=== PATIENT | male | born 1935 | race Caucasian/White ===

== ENCOUNTER → 2020-01-17 | Outpatient (REF) | payer MEDICARE, OTHER ==
[2020-02-25 09:28] LABS: ANTI JO-1 ANTIBODIES SEE SEPARATE REPORT; ANTI SCLERODERMA ANTIBODIES SEE SEPARATE REPORT; ANTINUCLEAR ANTIBODIES DIRECT See Separate Report; ASPERGILLUS FUMIGATUS AB SEE SEPARATE REPORT; CYCLIC CITRULLINATED PEPTIDE See Separate Report UNITS; CYTOPLASMIC NEUTROP AB ANCA-C SEE SEPARATE REPORT; SSA SJOGRENS A SEE SEPARATE REPORT; SSB SJOGRENS B SEE SEPARATE REPORT
[2020-02-25 09:29] LABS: ANGIOTENSIN 1 CONVERTING ENZYM See Separate Report U/L
[2020-03-02 11:15] LABS: C REACTIVE PROTEIN QUANTITATIV < 0.30 MG/DL (0.00-0.30); RHEUMATOID FACTOR QUANT < 10.0 IU/ML (<15.0)
== END ==
LOC: M PLALAB 11:19
PROVIDERS: ATTEND Internal Medicine Pulmonary Disease
DX: J84.10 Pulmonary fibrosis, unspecified (principal)

== ENCOUNTER → 2020-01-25 | Outpatient (CLI) | payer MEDICARE, OTHER | LOC: M RAD 09:09 | PROVIDERS: ATTEND Internal Medicine Pulmonary Disease | DX: J84.10 Pulmonary fibrosis, unspecified (principal) ==

== ENCOUNTER → 2020-03-28 | Outpatient (CLI) | payer MEDICARE, OTHER ==
[2020-03-28 14:46] LABS: INR 1.04; PROTHROMBIN TIME 13.9 SECONDS (12.5-14.3)
[2020-03-28 14:47] LABS: PARTIAL THROMBOPLASTIN TIME 31.8 SECONDS (24.2-38.5)
[2020-03-28 15:07] LABS: ALBUMIN 3.5 GM/DL (3.2-5.2); ALT/SGPT 16 U/L (12-78); BILIRUBIN,TOTAL 0.7 MG/DL (0.2-1.0); BLOOD UREA NITROGEN 17 MG/DL (7-18); CALCIUM LEVEL 9.1 MG/DL (8.8-10.2); CARBON DIOXIDE LEVEL 32 MEQ/L (21-32); CHLORIDE LEVEL 101 MEQ/L (98-107); CREATININE FOR GFR 0.89 MG/DL (0.70-1.30); GLOMERULAR FILTRATION RATE > 60.0 (>35); GLUCOSE, FASTING 58 MG/DL (70-100); POTASSIUM SERUM 4.8 MEQ/L (3.5-5.1); SODIUM LEVEL 137 MEQ/L (136-145); TOTAL PROTEIN 7.4 GM/DL (6.4-8.2)
== END ==
LOC: M PLALAB 09:11
PROVIDERS: ATTEND Internal Medicine Pulmonary Disease
DX: J84.112 Idiopathic pulmonary fibrosis (principal)

== ENCOUNTER → 2020-04-22 | Outpatient (REF) | payer MEDICARE, OTHER ==
[2020-04-22 18:25] LABS: ALBUMIN 3.6 GM/DL (3.2-5.2); ALT/SGPT 16 U/L (12-78); BILIRUBIN,TOTAL 0.6 MG/DL (0.2-1.0); BLOOD UREA NITROGEN 23 MG/DL (7-18); CALCIUM LEVEL 9.2 MG/DL (8.8-10.2); CARBON DIOXIDE LEVEL 30 MEQ/L (21-32); CHLORIDE LEVEL 103 MEQ/L (98-107); CREATININE FOR GFR 0.79 MG/DL (0.70-1.30); GLOMERULAR FILTRATION RATE > 60.0 (>35); GLUCOSE, FASTING 111 MG/DL (70-100); POTASSIUM SERUM 5.7 MEQ/L (3.5-5.1); SODIUM LEVEL 137 MEQ/L (136-145); TOTAL PROTEIN 7.2 GM/DL (6.4-8.2)
== END ==
LOC: M LAB REF 17:00
PROVIDERS: ATTEND Internal Medicine Pulmonary Disease
DX: J84.10 Pulmonary fibrosis, unspecified (principal)

== ENCOUNTER → 2020-05-19 | Outpatient (CLI) | payer MEDICARE, OTHER ==
[2020-05-19 14:21] LABS: ALBUMIN 3.5 GM/DL (3.2-5.2); ALT/SGPT 18 U/L (12-78); BILIRUBIN,TOTAL 0.4 MG/DL (0.2-1.0); BLOOD UREA NITROGEN 16 MG/DL (7-18); CALCIUM LEVEL 8.9 MG/DL (8.8-10.2); CARBON DIOXIDE LEVEL 31 MEQ/L (21-32); CHLORIDE LEVEL 100 MEQ/L (98-107); CREATININE FOR GFR 0.78 MG/DL (0.70-1.30); GLOMERULAR FILTRATION RATE > 60.0 (>35); GLUCOSE, FASTING 78 MG/DL (70-100); POTASSIUM SERUM 4.4 MEQ/L (3.5-5.1); SODIUM LEVEL 134 MEQ/L (136-145); TOTAL PROTEIN 7.5 GM/DL (6.4-8.2)
== END ==
LOC: M PLALAB 12:14
PROVIDERS: ATTEND Internal Medicine Pulmonary Disease
DX: R94.2 Abnormal results of pulmonary function studies (principal); J84.10 Pulmonary fibrosis, unspecified

== ENCOUNTER → 2020-07-14 | Outpatient (CLI) | payer MEDICARE, OTHER ==
[2020-07-14 14:20] LABS: ALBUMIN 3.5 GM/DL (3.2-5.2); ALT/SGPT 14 U/L (12-78); BILIRUBIN,TOTAL 0.4 MG/DL (0.2-1.0); BLOOD UREA NITROGEN 20 MG/DL (7-18); CALCIUM LEVEL 9.3 MG/DL (8.8-10.2); CARBON DIOXIDE LEVEL 33 MEQ/L (21-32); CHLORIDE LEVEL 101 MEQ/L (98-107); GLOMERULAR FILTRATION RATE > 60.0 (>35); GLUCOSE, FASTING 72 MG/DL (70-100); POTASSIUM SERUM 4.8 MEQ/L (3.5-5.1); SODIUM LEVEL 137 MEQ/L (136-145); TOTAL PROTEIN 7.5 GM/DL (6.4-8.2)
== END ==
LOC: M PLALAB 09:47
PROVIDERS: ATTEND Internal Medicine Pulmonary Disease
DX: J84.10 Pulmonary fibrosis, unspecified (principal)

== ENCOUNTER → 2020-08-12 | Outpatient (CLI) | payer MEDICARE, OTHER ==
[2020-08-12 14:18] LABS: BASO % 0.4 % (0.0-1.0); EOS # 0.3 10^3/uL (0.0-0.5); EOS % 3.3 % (0.0-3.0); HEMATOCRIT 40.1 % (42.0-52.0); HEMOGLOBIN 12.5 g/dl (13.5-17.5); LYMPH # 1.4 10^3/uL (1.5-5.0); LYMPH % 17.6 % (24.0-44.0); MEAN CORPUSCULAR HEMOGLOBIN 29.1 pg (27.0-33.0); MEAN CORPUSCULAR HGB CONC 31.2 g/dl (32.0-36.5); MEAN CORPUSCULAR VOLUME 93.5 fl (80.0-96.0); MONO # 0.5 10^3/uL (0.0-0.8); NEUTROPHILS # 5.5 10^3/uL (1.5-8.5); NEUTROPHILS % 71.4 % (36.0-66.0); PLATELET COUNT, AUTOMATED 328 10^3/uL (150-450); RED BLOOD COUNT 4.29 10^6/uL (4.30-6.10); WHITE BLOOD COUNT 7.7 10^3/uL (4.0-10.0)
[2020-08-12 14:27] LABS: INR 1.05; PROTHROMBIN TIME 13.9 SECONDS (12.5-14.3)
[2020-08-12 14:28] LABS: PARTIAL THROMBOPLASTIN TIME 31.6 SECONDS (24.2-38.5)
[2020-08-12 14:50] LABS: ALBUMIN 3.7 GM/DL (3.2-5.2); ALT/SGPT 16 U/L (12-78); BILIRUBIN,TOTAL 0.6 MG/DL (0.2-1.0); BLOOD UREA NITROGEN 19 MG/DL (7-18); CALCIUM LEVEL 9.4 MG/DL (8.8-10.2); CARBON DIOXIDE LEVEL 33 MEQ/L (21-32); CHLORIDE LEVEL 100 MEQ/L (98-107); CREATININE FOR GFR 0.96 MG/DL (0.70-1.30); GLOMERULAR FILTRATION RATE > 60.0 (>35); GLUCOSE, FASTING 104 MG/DL (70-100); SODIUM LEVEL 136 MEQ/L (136-145); TOTAL PROTEIN 7.6 GM/DL (6.4-8.2)
== END ==
LOC: M PLALAB 11:55
PROVIDERS: ATTEND Internal Medicine Pulmonary Disease
DX: J84.10 Pulmonary fibrosis, unspecified (principal)

== ENCOUNTER → 2020-12-05 | Outpatient (REF) | payer MEDICARE, OTHER ==
[2020-12-05 17:21] LABS: FERRITIN 198 NG/ML (26-388); IRON (FE) 71 UG/DL (65-175); PERCENT SATURATION 28.7 % (19.7-50.0); TOTAL IRON BINDING CAPACITY 247 UG/DL (250-450)
[2020-12-05 17:27] LABS: FOLATE > 24.0 NG/ML; VITAMIN B12 LEVEL 918 PG/ML
== END ==
LOC: M LAB REF 16:27
PROVIDERS: ATTEND Internal Medicine
DX: K59.00 Constipation, unspecified (principal)

== ENCOUNTER 2021-01-27 22:26 | Inpatient (IN) | payer MEDICARE, OTHER ==
[~2021-01-27] VITALS: Ht 172.7 cm; Wt 57.7 kg
[2021-01-27] MEDS ORDERED: ACETAMINOPHEN TAB 650MG DOSE (2X325MG) PO ONE (23:10)
[2021-01-28 00:08] LABS: BASO # 0.1 10^3/uL (0.0-0.2); BASO % 0.4 % (0.0-1.0); EOS # 0.4 10^3/uL (0.0-0.5); EOS % 2.2 % (0.0-3.0); HEMATOCRIT 42.5 % (42.0-52.0); HEMOGLOBIN 13.8 g/dl (13.5-17.5); LYMPH % 6.4 % (24.0-44.0); MEAN CORPUSCULAR HEMOGLOBIN 28.8 pg (27.0-33.0); MEAN CORPUSCULAR HGB CONC 32.5 g/dl (32.0-36.5); MEAN CORPUSCULAR VOLUME 88.7 fl (80.0-96.0); MONO # 0.7 10^3/uL (0.0-0.8); MONO % 4.4 % (2.0-8.0); NEUTROPHILS # 13.6 10^3/uL (1.5-8.5); NEUTROPHILS % 85.8 % (36.0-66.0); PLATELET COUNT, AUTOMATED 373 10^3/uL (150-450); RED BLOOD COUNT 4.79 10^6/uL (4.30-6.10); WHITE BLOOD COUNT 15.8 10^3/uL (4.0-10.0)
--- NOTE | 2021-01-28 00:31 | REPVR ---
PROCEDURE INFORMATION: Exam: XR Chest Exam date and time: 01/27/2021 11:55 PM Age: 85 years old Clinical indication: Cough and dyspnea TECHNIQUE: Imaging protocol: XR of the chest. Views: 1 view. COMPARISON: CT Chest without contrast 01/25/2020 9:38 AM (The report from this study was not available for review at the time of this interpretation.) FINDINGS: Lungs: There are chronic extensive reticular opacities in both lungs, which can also be seen in the CT chest on 01/25/2020 and compatible with interstitial lung disease. There are areas of superimposed consolidation in both lungs. Pleural spaces: Unremarkable. No pleural effusion. No pneumothorax. Heart/Mediastinum: Unremarkable. No cardiomegaly. Bones/joints: Unremarkable. IMPRESSION: Areas of consolidation in both lungs superimposed on chronic interstitial lung disease, which may represent pneumonia. Electronically signed by: Jimmy Prince On 01/28/2021 00:31:05 AM
[2021-01-28] MEDS ORDERED: cefTRIAXone SOD 2 GM in D5W MINI-BAG PLUS 50 ML IV ONE (01:00)
[2021-01-28 01:51] LABS: ALBUMIN 2.7 GM/DL (3.2-5.2); ALT/SGPT 13 U/L (12-78); BILIRUBIN,DIRECT 0.2 MG/DL (0.0-0.2); BILIRUBIN,TOTAL 0.5 MG/DL (0.2-1.0); BLOOD UREA NITROGEN 24 MG/DL (7-18); CARBON DIOXIDE LEVEL 30 MEQ/L (21-32); CHLORIDE LEVEL 103 MEQ/L (98-107); CK-MB VALUE MASS 1.7 NG/ML (<3.6); CPK CREATINE PHOSPHOKINASE 37 U/L (39-308); CREATININE FOR GFR 0.65 MG/DL (0.70-1.30); GLOMERULAR FILTRATION RATE > 60.0 (>35); GLUCOSE, FASTING 110 MG/DL (70-100); MB/CK RELATIVE INDEX 4.59 (< OR =4); NT-PRO BNP 5996 PG/ML (<450); POTASSIUM SERUM 4.2 MEQ/L (3.5-5.1); SODIUM LEVEL 137 MEQ/L (136-145); TOTAL PROTEIN 7.1 GM/DL (6.4-8.2); TROPONIN I 0.05 NG/ML (< 0.10)
[2021-01-28] MEDS ORDERED: ASPI-1 PO (01:58)
[2021-01-28] MEDS ORDERED: ISOS1TAB36 PO (01:58)
[2021-01-28] MEDS ORDERED: ATOR1TAB19 PO (01:58)
[2021-01-28] MEDS ORDERED: ALBU8.5H PO (01:58)
[2021-01-28] MEDS ORDERED: PANT40TA29 PO (01:58)
[2021-01-28] MEDS ORDERED: MORP1SOL5 PO (01:58)
[2021-01-28] MEDS ORDERED: MONT10TA10 PO (01:58)
[2021-01-28] MEDS ORDERED: NITR0.4S14 SL (01:58)
[2021-01-28] MEDS ORDERED: VITA-243 PO (01:58)
[2021-01-28] MEDS ORDERED: IBUP-1114 PO (01:58)
[2021-01-28] MEDS ORDERED: LEVO112T2 PO (01:58)
[2021-01-28] MEDS ORDERED: MIRA3350 PO (01:59)
[2021-01-28] MEDS ORDERED: CO Q200C10 PO ×2 (01:59→06:37)
[2021-01-28] MEDS ORDERED: Glucosamine PO (02:04)
[2021-01-28] MEDS ORDERED: Prevagen PO (02:05)
[2021-01-28] MEDS ORDERED: ISOVUE-370 76% 100ML VIAL As Ordered ONE (02:17)
--- NOTE | 2021-01-28 03:24 | REPVR ---
PROCEDURE INFORMATION: Exam: CTA Chest With Contrast Exam date and time: 01/28/2021 2:13 AM Age: 85 years old Clinical indication: Shortness of breath; Patient HX: Known fibrosis; Additional info: Shortness of breath, hypoxia, R/O pe TECHNIQUE: Imaging protocol: Computed tomographic angiography of the chest with contrast. 3D rendering (Not supervised by radiologist): MIP and/or 3D reconstructed images were created by the technologist. Radiation optimization: All CT scans at this facility use at least one of these dose optimization techniques: automated exposure control; mA and/or kV adjustment per patient size (includes targeted exams where dose is matched to clinical indication); or iterative reconstruction. Contrast material: ISO; Contrast volume: 75 ml; Contrast route: INTRAVENOUS (IV); COMPARISON: CT Chest without contrast 01/25/2020 9:38 AM FINDINGS: Pulmonary arteries: No pulmonary embolism. Aorta: The thoracic aorta is intact and patent. There is no thoracic aortic aneurysm, pseudoaneurysm, penetrating atherosclerotic ulcer, intramural hematoma, or dissection. There are mild atherosclerotic calcifications. Thyroid: The thyroid is small and the right lobe contains a calcification, which are unchanged findings compared to the prior CT chest on 01/25/2020. Trachea: Normal. Bronchial tree: Patent. Lungs: There is interlobular septal thickening, traction bronchiectasis, honeycombing, and areas of superimposed peripheral consolidation in both lungs, with progression in the consolidation in both lower lobes compared to the CT chest on 01/25/2020. There are calcified granulomas in the right upper lobe and left lower lobe. Pleural spaces: No pneumothorax. No pleural effusion. Heart: No cardiomegaly or pericardial effusion. The ratio of the diameter of the right ventricle to the diameter of the left ventricle measures less than 1, which is within normal limits and there is no CT evidence for a right ventricular strain. There are coronary artery calcifications. Mediastinal space: There is a small to moderate hiatal hernia, which is similar in appearance compared to the CT chest on 01/25/2020. Lymph nodes: There is pretracheal, prevascular, aortopulmonary window, and subcarinal lymphadenopathy. Calcified subcarinal lymph nodes are present, which represent calcified granulomas. Liver: There are calcified granulomas in the liver. No liver mass is identified. The contour of the liver is smooth. No hepatomegaly. The liver was not fully imaged. Spleen: There are calcified granulomas in the spleen. The spleen was not fully imaged. Limited bowel: There is colonic diverticulosis at the splenic flexure of the colon. The bowel was not fully imaged. Bones/joints: There is no fracture or dislocation. No suspicious osteolytic or osteoblastic lesion. Soft tissues: Unremarkable. No soft tissue fluid collection. IMPRESSION: 1. No pulmonary embolism. 2. Chronic fibrotic changes in the lungs, with progressive consolidation in both lower lobes compared to the CT chest on 01/25/2020, which may represent a superimposed pneumonia or progressive fibrosis. 3. Pretracheal, prevascular, aortopulmonary window, and subcarinal lymphadenopathy. 4. Small to moderate hiatal hernia, which is similar in appearance compared to the CT chest on 01/25/2020. Electronically signed by: Jimmy Prince On 01/28/2021 03:23:29 AM
[2021-01-28] MEDS ORDERED: C 50TAB PO (06:37)
[2021-01-28] MEDS ORDERED: ASPI-264 PO (06:37)
[2021-01-28] MEDS ORDERED: D31000TA2 PO (06:37)
[2021-01-28] MEDS ORDERED: VITMTA PO (06:37)
[2021-01-28] MEDS ORDERED: ALLE24TA7 PO (06:37)
[2021-01-28] MEDS ORDERED: MIRA1POW3 PO (06:37)
[2021-01-28] MEDS ORDERED: HOME MED LIST COMPLETE! XX SCH (06:40)
[2021-01-28] MEDS ORDERED: ACETAMINOPHEN TAB 650MG DOSE (2X325MG) PO PRN (07:45)
[2021-01-28] MEDS ORDERED: NITROGLYCERIN 0.4 MG SUBL TABLET SL PRN (07:45)
[2021-01-28] MEDS ORDERED: MORPHINE 10MG/0.5ML ORAL CONCENTRATE SOLUTION U/D PO PRN (07:45)
[2021-01-28] MEDS ORDERED: AZITHROMYCIN INJ 500 MG, VIAL MATE ADAPTER 1 EACH in NS 250 ML IV ONE (10:00)
--- NOTE | 2021-01-28 10:08 | ECGEPIP ---
[facility] - ED Test Date: 2021-01-27 Pat Name: MILTON MORALES Department: Room: - Gender: Male Supervisor [employer]: [facility] : 1935 Requested By: MEENU Ramos Order Number: [id number] Reading MD: Brandee Hernandez Measurements Intervals [place] Rate: 104 P: 85 DE: 180 QRS: -27 QRSD: 142 T: 137 QT: 372 QTc: 489 Interpretive Statements Sinus tachycardia with occasional premature ventricular complexes Left bundle branch block No prior Electronically Signed on 01-28-2021 10:07:54 EDT by Brandee Hernandez
[2021-01-28 10:55] VITALS: BP 144/88
[2021-01-28] MEDS: ISOSORBIDE MON. (IMDUR) 60 MG XR TAB PO SCH (11:59)
[2021-01-28] MEDS: ASCORBIC ACID 500 MG TAB PO SCH ×2 (11:59→22:02)
[2021-01-28] MEDS: PANTOPRAZOLE 40MG TAB (PROTONIX) PO SCH (11:59)
[2021-01-28] MEDS: VITAMIN D 1,000 INTERNATIONAL UNITS TABLET PO SCH ×2 (11:59→22:02)
[2021-01-28] MEDS: ENOXAPARIN 40MG/0.4ML SYRINGE (J1650 PER 10MG) SC SCH (12:00)
--- NOTE | 2021-01-28 12:04 | HPEPDOC ---
[facility] Medical History & Physical Date of Admission Jan 28, 2021 Date of Service: Jan 28, 2021 Primary Care Physician: Jr Pedraza Collins Attending Physician: NORM DELGADILLO DO History and Physical CHIEF COMPLAINT: Shortness of breath HISTORY OF PRESENT ILLNESS: Patient is an 85-year-old male who presented to the emergency department with a 3-week worsening course of shortness of breath. Patient states that he has been having increased shortness of breath. Patient was diagnosed about a year ago with pulmonary fibrosis and has been seeing pulmonary. Patient states he has qualified for home oxygen at night but not during the day however, he has not yet received the home oxygen set up. Patient states that he has been having difficulty walking around and going up flight of stairs. Patient states that he was able to do this without much difficulty prior to the last 3 weeks. Patient does state he is coughing occasionally and gets a coughing fit so bad that he begins gagging. When he does get he has a frothy nonbloody sputum. Patient denies having any fevers or chills. Patient states he came into the emergency department today as he was having worsening of the shortness of breath to the point where he had a be standing in front of an air conditioner for about 30 minutes to recover and he checked his oxygen saturation and was in the low 80s. In the emergency department, a CT scan was performed and showed either pneumonia or worsening of his chronic fibrosis. Patient was placed on nasal cannula oxygen and is feeling much better at this time. PAST MEDICAL HISTORY: 1. Pulmonary fibrosis. 2. Angina. 3. Hypertension. 4. Hypothyroidism 5. Hyperlipidemia PAST SURGICAL HISTORY: 1. 2 hernia surgeries in the past. SOCIAL HISTORY: Patient currently lives at home alone and quit smoking in the 1970s. Patient will occasionally drink alcohol and denies any illicit drug use. Patient used to work maintenance at a school and does have some possible chemical exposure. Patient denies having any pets FAMILY HISTORY: Patient states his entire family had hypertension ALLERGIES: Please see below. REVIEW OF SYSTEMS: General: Patient denies fevers HEENT: Patient denies headaches Cardiovascular: Patient denies chest pain Respiratory: Patient reports shortness of breath and cough as above. GI: Patient reports that he did have one episode of vomiting a few days ago and does have gagging when his cough is bad however, he denies any abdominal pain, nausea, or vomiting recently : Patient denies increased frequency or pain with urination Extremities: Patient denies swelling or pain in extremities Neurological: Patient denies numbness or tingling in legs Skin: Patient denies any new rashes or lesions. Hematologic: Patient denies any easy bruising. Lymphatic: Patient denies any lumps lumps or bumps in neck, axilla, or groin HOME MEDICATIONS: Please see below. PHYSICAL EXAMINATION: VITAL SIGNS: Temperature 97.7, pulse 72, respiratory rate 20, blood pressure 144/88, pulse oximetry 98% on 3 L of oxygen via nasal cannula General: Alert and oriented male patient who was sitting on the stretcher with nasal cannula oxygen in place when I walked in the room. Patient was able to speak in full sentences with oxygen on and did not appear to be in any acute distress. HEENT: Normocephalic, atraumatic, moist mucous membranes. Neck: No lymphadenopathy or thyromegaly Cardiac: Regular rate and rhythm, grade 2/6 systolic murmur heard loudest over the fourth intercostal space on the left sternal border Pulm: Diminished breath sounds throughout the entire lung robbins with coarse crackles heard in the bases of the lungs bilaterally Abd: Nondistended, nontender to palpation, normal bowel sounds Ext: No edema bilateral lower extremities Neuro: Patient was able to move all 4 extremities on command and reported equal sensation to light touch in his upper and lower extremities bilaterally Skin: Skin of the head, neck, upper and lower extremities, back was examined did not show any evidence of rash LABORATORY DATA: See below. IMAGING: Chest x-ray performed on 01/27/2021 was reported to show areas of consolidation in both lung superimposed on chronic interstitial lung disease, which may represent pneumonia. CT angiogram of the chest performed on 01/28/2021 was reported to show no pulmonary embolism. Chronic fibrotic changes in the lungs, with progressive consolidation in both lower lobes compared to CT chest on 01/25/2020 which may represent a superimposed pneumonia or progressive fibrosis. Pretracheal, prevascular, aortopulmonary window and subcarinal lymphadenopathy. Small to moderate hiatal hernia, which is similar in appearance compared to CT chest on 01/25/2020. MICROBIOLOGY: Please see below. ASSESSMENT: 85-year-old male presented with increasing shortness of breath which is thought to be either secondary to a pneumonia on top of chronic pulmonary fibrosis or worsening of his pulmonary fibrosis.. . PLAN: 1. Shortness of breath. This may be secondary to an acute community-acquired pneumonia based on CT and chest x-ray findings. Patient does have a leukocytosis. Patient was placed on oxygen and is feeling much better. Patient also had a dose of ceftriaxone in the emergency department. Patient also rece ived a dose of azithromycin on admission for possible community-acquired pneumonia. Procalcitonin was ordered. 2. Acute exacerbation of pulmonary fibrosis. Patient is currently under the care of Dr. Calle outpatient for his pulmonary fibrosis. Patient has been on antifibrosis medications however, he said he stopped the most recent one in August as it was causing him to have stomach issues. Patient will most likely need home oxygen after this admission. Patient will be started on 60 mg of prednisone for 3 days with a taper after this. 3. Possible community-acquired pneumonia. Both chest x-ray and CT scan of the chest show possible consolidation. Procalcitonin was ordered and was negative. Antibiotics will not be continued as I believe that this hypoxia is secondary to the patient's pulmonary fibrosis and not pneumonia. We will continue to monitor the patient. 4. Hypertension. We will continue patient's on medications. 5. Stable angina. Patient is on nitroglycerin ordered by his primary care provider which we will continue. Patient states he had a stress test recently but cannot remember the exact date. 6. Systolic murmur. Based on the position of the patient's murmur, it appears the patient may have tricuspid regurgitation. Echocardiogram has been ordered. 7. Hyperlipidemia. Continue patient's home medications. 8. DVT prophylaxis: Lovenox 9. CODE STATUS: DNR/DNI. Patient does have a living well as well as a MOLST form. I was able to see the living well which stated that the patient has a irreversible condition patient would not like life-saving measures including CPR and mechanical ventilation. Patient did not have his MOLST form with him but I did recommend them bring it in. In my discussion with the patient, patient stated that he does not want CPR and understands that if his breathing gets to the point where he needs a mechanical ventilator, patient understands that he will most likely never be able to come off mechanical ventilator so he does not want to pursue that route. Patient has been made DO NOT RESUSCITATE/DO NOT INTUBATE. Disposition: Patient be admitted to the medical surgical floor for further treatment. If the patient qualifies for home oxygen, patient can be set up for this. Vital Signs Vital Signs Date Time Temp Pulse Resp B/P (MAP) Pulse Ox O2 Delivery O2 Flow Rate FiO2 01/28/21 08:45 76 19 97 Nasal Cannula 3.0 01/28/21 08:00 141/95 (110) 01/28/21 05:45 98.6 Laboratory Data Labs 24H Laboratory Tests 2 01/27/21 23:38: Immature Granulocyte % (Auto) 0.8, Neutrophils (%) (Auto) 85.8H, Lymphocytes (%) (Auto) 6.4L, Monocytes (%) (Auto) 4.4, Eosinophils (%) (Auto) 2.2, Basophils (%) (Auto) 0.4, Neutrophils # (Auto) 13.6H, Lymphocytes # (Auto) 1.0L, Monocytes # (Auto) 0.7, Eosinophils # (Auto) 0.4, Basophils # (Auto) 0.1, Nucleated Red Blood Cells % (auto) 0.0, Lactic Acid Level 1.1 01/27/21 23:40: POC pH (Misc Panel) 7.433, POC Base Excess (Misc Panel) 5.0H, POC Saturated Percent O2 (Misc) 98, POC pO2 (Misc Panel) 108.0H, POC pCO2 (Misc Panel) 44.2, POC HCO3 (Misc Panel) 29.6H, POC Total CO2 (Misc Panel) 31.0H 01/28/21 00:55: Procalcitonin <0.05 01/28/21 01:01: Anion Gap 4L, Glomerular Filtration Rate > 60.0, Calcium Level 9.0, Total Bilirubin 0.5, Direct Bilirubin 0.2, Aspartate Amino Transf (AST/SGOT) 27, Alanine Aminotransferase (ALT/SGPT) 13, Alkaline Phosphatase 68, Total Creatine Kinase 37L, Creatine Kinase MB 1.7, Creatine Kinase MB Relative Index 4.59H, Troponin I 0.05, OF-Vni-A-Type Natriuretic Peptide 5996H, Total Protein 7.1, Albumin 2.7L, Albumin/Globulin Ratio 0.6, Thyroid Stimulating Hormone (TSH) 2.340 CBC/BMP Laboratory Tests 01/27/21 23:38 01/28/21 01:01 Microbiology Microbiology 01/27/21 Blood Culture, Received Pending 01/27/21 Blood Culture, Received Pending 01/27/21 Respiratory Virus Panel (PCR) ([facility]) - Final, Complete Home Medications Scheduled Ascorbic Acid (Vitamin C) 500 Mg Tablet, 500 MG PO BID Aspirin (Aspirin) 325 Mg Tablet, 325 MG PO QHS Atorvastatin Calcium (Atorvastatin Calcium) 10 Mg Tablet, 10 MG PO QHS Cholecalciferol (Vitamin D3) (Vitamin D3) 1,000 Unit Tablet, 1,000 UNITS PO BID Fexofenadine/Pseudoephedrine (Concepcion-D 24 Hour Tablet) 1 Each Tab.er.24h, 1 TAB PO DAILY Isosorbide Mononitrate (Isosorbide Mononitrate ER) 60 Mg Tab.er.24h, 60 MG PO DAILY Levothyroxine Sodium (Levothyroxine Sodium) 112 Mcg Tablet, 112 MCG PO DAILY Montelukast Sodium (Montelukast Sodium) 10 Mg Tablet, 10 MG PO QHS Multivitamins (Thera M Plus Tablet) 1 Each Tablet, 1 TAB PO QHS Pantoprazole Sodium (Pantoprazole Sodium) 40 Mg Tablet.dr, 40 MG PO DAILY Polyethylene Glycol 3350 (Miralax) 17 Gm Powd.pack, 8.5 GM PO QHS Prednisone (Prednisone) 10 Mg Tablet, 10 MG PO TAPER 6 tabs daily x 1 days then 4 tabs daily x3 days then 3 tabs daily x3 days then 2 tab daily x3 days then 1 tab daily x3 days Ubidecarenone (Co Q-10) 200 Mg Capsule, 200 MG PO QHS [Prevagen] , 1 CHEW PO DAILY Scheduled PRN Morphine Sulfate (Morphine Sulfate) 100 Mg/5 Ml Solution, 0.25 ML PO Q3HP PRN for SOB/COUGH Nitroglycerin (Nitroglycerin) 0.4 Mg Tab.subl, 0.4 MG SL PRN PRN for CHEST PAIN Allergies Coded Allergies: codeine (Verified Allergy, Unknown, 01/28/21) A-FIB/CHADSVASC A-FIB History Current/History of A-Fib/PAF?: No NORM DELGADILLO DO Jan 28, 2021 12:04
[2021-01-28] MEDS: predniSONE 20 MG TAB PO SCH (12:29)
[2021-01-28 14:23] LABS: CK-MB VALUE MASS 2.4 NG/ML (<3.6); TROPONIN I 0.02 NG/ML (< 0.10)
[2021-01-28 14:30] VITALS: BP 137/86
[2021-01-28] MEDS ORDERED: MIRALAX *UNIT DOSE* 17GM PACKET PO SCH (21:00)
[2021-01-28] MEDS ORDERED: MULTIVITAMINS/MINERALS THERAP 1 TAB PO SCH (21:00)
[2021-01-28] MEDS ORDERED: ATORVASTATIN 10 MG TAB PO SCH (21:00)
[2021-01-28] MEDS ORDERED: ASPIRIN 325 MG TAB PO SCH (21:00)
[2021-01-28] MEDS ORDERED: MONTELUKAST 10 MG TAB PO SCH (21:00)
[2021-01-28 22:00] VITALS: BP 118/72
[2021-01-28 22:15] LABS: CK-MB VALUE MASS 2.3 NG/ML (<3.6); CPK CREATINE PHOSPHOKINASE 38 U/L (39-308); MB/CK RELATIVE INDEX 6.05 (< OR =4); TROPONIN I < 0.02 NG/ML (< 0.10)
[2021-01-29 06:00] VITALS: BP 130/77
[2021-01-29] MEDS ORDERED: LEVOTHYROXINE 112MCG TABLET (0.112MG) PO SCH (06:00)
[2021-01-29 08:23] LABS: BASO % 0.2 % (0.0-1.0); EOS # 0.1 10^3/uL (0.0-0.5); EOS % 0.9 % (0.0-3.0); HEMATOCRIT 41.9 % (42.0-52.0); HEMOGLOBIN 13.6 g/dl (13.5-17.5); LYMPH # 1.7 10^3/uL (1.5-5.0); LYMPH % 12.4 % (24.0-44.0); MEAN CORPUSCULAR HEMOGLOBIN 28.6 pg (27.0-33.0); MEAN CORPUSCULAR HGB CONC 32.5 g/dl (32.0-36.5); MEAN CORPUSCULAR VOLUME 88.2 fl (80.0-96.0); MONO # 0.6 10^3/uL (0.0-0.8); MONO % 4.6 % (2.0-8.0); NEUTROPHILS # 11.2 10^3/uL (1.5-8.5); NEUTROPHILS % 81.1 % (36.0-66.0); PLATELET COUNT, AUTOMATED 383 10^3/uL (150-450); RED BLOOD COUNT 4.75 10^6/uL (4.30-6.10); WHITE BLOOD COUNT 13.7 10^3/uL (4.0-10.0)
[2021-01-29 08:48] LABS: BLOOD UREA NITROGEN 22 MG/DL (7-18); CALCIUM LEVEL 9.4 MG/DL (8.8-10.2); CARBON DIOXIDE LEVEL 30 MEQ/L (21-32); CHLORIDE LEVEL 100 MEQ/L (98-107); CK-MB VALUE MASS 2.3 NG/ML (<3.6); CPK CREATINE PHOSPHOKINASE 45 U/L (39-308); GLOMERULAR FILTRATION RATE > 60.0 (>35); GLUCOSE, FASTING 141 MG/DL (70-100); MAGNESIUM LEVEL 2.1 MG/DL (1.8-2.4); MB/CK RELATIVE INDEX 5.11 (< OR =4); SODIUM LEVEL 135 MEQ/L (136-145); TROPONIN I < 0.02 NG/ML (< 0.10)
[2021-01-29 09:00] VITALS: BP 133/72
[2021-01-29] MEDS: ISOSORBIDE MON. (IMDUR) 60 MG XR TAB PO SCH (09:00)
[2021-01-29] MEDS: predniSONE 20 MG TAB PO SCH (10:08)
[2021-01-29] MEDS: PANTOPRAZOLE 40MG TAB (PROTONIX) PO SCH (10:08)
[2021-01-29] MEDS: ENOXAPARIN 40MG/0.4ML SYRINGE (J1650 PER 10MG) SC SCH (10:08)
[2021-01-29] MEDS: VITAMIN D 1,000 INTERNATIONAL UNITS TABLET PO SCH (10:08)
[2021-01-29] MEDS: ASCORBIC ACID 500 MG TAB PO SCH (10:09)
[2021-01-29] MEDS ORDERED: PRED10TA2 PO (11:38)
--- NOTE | 2021-01-29 12:49 | DS.PDOC ---
Discharge Summary General Date of Admission Jan 28, 2021 at 07:45 Date of Discharge 01/29/2021 Primary Care Physician: Jr Pedraza Collins Attending Physician: NORM DELGADILLO DO Discharge Summary PROCEDURES PERFORMED DURING STAY: None. ADMITTING DIAGNOSES: 1. Shortness of breath. 2. Acute exacerbation of pulmonary fibrosis 3. Possible community-acquired pneumonia 4. Hypertension 5. Stable angina 6. Systolic murmur 7. Hyperlipidemia DISCHARGE DIAGNOSES: 1. Shortness of breath. 2. Acute exacerbation of pulmonary fibrosis 3. Hypertension 4. Stable angina 5. Systolic murmur 6. Hyperlipidemia 7. Chronic hypoxic respiratory failure COMPLICATIONS/CHIEF COMPLAINT: Pneumonia, Pulmonary Fibrosis. HISTORY OF PRESENT ILLNESS: Patient is an 85-year-old male who presented the emergency department for 3-week worsening course of shortness of breath with exertion. Patient has been having increased shortness of breath with exertion for the past year now however, this is worsened acutely over the past 3 weeks. Patient does have a cough and states when he coughs a lot, he begins to gag. Patient says that he will occasionally bring up a clear nonbloody phlegm. Patient was brought to the emergency department because his coughing got so bad that he was gagging and he thought he was having chills. Patient did have a low-grade temperature prior to coming to the emergency department. Patient apparently had qualified for home oxygen at night but did not receive this at this time. Patient was doing better now that he been placed on supplemental oxygen therapy in the emergency department. Patient had a CT scan that showed either pneumonia or worsening of his chronic fibrosis. Patient was admitted for further work-up and management. HOSPITAL COURSE: Patient was thought to have a possible community-acquired pneumonia however, the patient's procalcitonin level was less than 0.05. Patient did receive a dose of ceftriaxone and azithromycin in the emergency department however, these were both discontinued as the procalcitonin was nega tive. Patient's breathing was doing better now that he was on supplemental oxygen. Patient was started on prednisone for an acute exacerbation of his pulmonary fibrosis. Patient was feeling better. Patient had a systolic murmur auscultated over the fourth intercostal space in the left sternal border. Patient states that his palliative care provider had recommended that he see a resource agent. Echocardiogram was ordered and performed prior to discharge. Patient qualified for home oxygen therapy as his resting oxygen saturations were in the mid 80s. Home oxygen prescription was given for the patient. Patient said he was feeling much better now that he had oxygen and stated he was ready to go home. Patient was deemed ready for discharge and discharged on 01/29/2021. DISCHARGE MEDICATIONS: Please see below. ALLERGIES: Please see below. PHYSICAL EXAMINATION ON DISCHARGE: VITAL SIGNS: Please see below. General: Alert and oriented male patient with nasal cannula oxygen in place when I walked in the room. Patient not appear to be in any acute distress. HEENT: Normocephalic, atraumatic, moist mucous membranes. Neck: No lymphadenopathy or thyromegaly Cardiac: Regular rate and rhythm, 2/6 systolic murmur heard loudest over the fourth intercostal space on the left sternal border Pulm: coarse crackles over the bilateral bases up to the low mid lung robbins Abd: Nondistended, nontender to palpation, normal bowel sounds Ext: No edema bilateral lower extremities LABORATORY DATA: Please see below. IMAGING: Chest x-ray performed on 01/27/2021 was reported to show areas of consol idation in both lung superimposed on chronic interstitial lung disease, which may represent pneumonia. CT angiogram of the chest performed on 01/28/2021 was reported to show no pulmonary embolism. Chronic fibrotic changes in the lungs, with progressive consolidation in both lower lobes compared to CT chest on 01/25/2020 which may represent a superimposed pneumonia or progressive fibrosis. Pretracheal, prevascular, aortopulmonary window and subcarinal lymphadenopathy. Small to moderate hiatal hernia, which is similar in appearance compared to CT chest on 01/25/2020. PROGNOSIS: Fair ACTIVITY: As tolerated. DIET: Regular DISCHARGE PLAN: Discharge home with home oxygen DISPOSITION: . DISCHARGE INSTRUCTIONS: 1. Follow-up with your primary care provider within 5 to 7 days of discharge 2. Follow-up with Dr. Calle of pulmonary. 3. Use home oxygen to maintain oxygen saturations greater than 92% 4. Return to the hospital if symptoms worsen ITEMS TO FOLLOWUP ON ON OUTPATIENT: 1. Follow-up on echocardiogram report. DISCHARGE CONDITION: Stable. TIME SPENT ON DISCHARGE: 35 minutes. Vital Signs/I&Os Vital Signs Date Time Temp Pulse Resp B/P (MAP) Pulse Ox O2 Delivery O2 Flow Rate FiO2 01/29/21 10:06 94 Nasal Cannula 2.0 01/29/21 09:00 133/72 01/29/21 06:00 98.0 76 18 I&O- Last 24 Hours up to 6 AM 01/29/21 06:00 Intake Total 780 ml Output Total 0 ml Balance 780 ml Laboratory Data Labs 24H Laboratory Tests 2 01/28/21 13:45: Total Creatine Kinase 40, Creatine Kinase MB 2.4, Creatine Kinase MB Relative Index 6.00H, Troponin I 0.02# 01/28/21 21:34: Total Creatine Kinase 38L, Creatine Kinase MB 2.3, Creatine Kinase MB Relative Index 6.05H, Troponin I < 0.02 01/29/21 07:51: Total Creatine Kinase 45, Creatine Kinase MB 2.3, Creatine Kinase MB Relative Index 5.11H, Troponin I < 0.02, Immature Granulocyte % (Auto) 0.8, Neutrophils (%) (Auto) 81.1H, Lymphocytes (%) (Auto) 12.4L, Monocytes (%) (Auto) 4.6, Eosinophils (%) (Auto) 0.9, Basophils (%) (Auto) 0.2, Neutrophils # (Auto) 11.2H, Lymphocytes # (Auto) 1.7, Monocytes # (Auto) 0.6, Eosinophils # (Auto) 0.1, Basophils # (Auto) 0.0, Nucleated Red Blood Cells % (auto) 0.0, Anion Gap 5L, Glomerular Filtration Rate > 60.0, Calcium Level 9.4, Magnesium Level 2.1 01/29/21 11:17: Lab Scanned Report Miscellaneous Lab CBC/BMP Laboratory Tests 01/29/21 07:51 Microbiology Microbiology 01/27/21 Blood Culture - Preliminary, Resulted No growth after 24 hours . All specim... 01/27/21 Blood Culture - Preliminary, Resulted No growth after 24 hours . All specim... 01/27/21 Respiratory Virus Panel (PCR) ([facility]) - Final, Complete Discharge Medications Scheduled Ascorbic Acid (Vitamin C) 500 Mg Tablet, 500 MG PO BID, (Reported) Aspirin (Aspirin) 325 Mg Tablet, 325 MG PO QHS, (Reported) Atorvastatin Calcium (Atorvastatin Calcium) 10 Mg Tablet, 10 MG PO QHS, (Reported) Cholecalciferol (Vitamin D3) (Vitamin D3) 1,000 Unit Tablet, 1,000 UNITS PO BID, (Reported) Fexofenadine/Pseudoephedrine (Concepcion-D 24 Hour Tablet) 1 Each Tab.er.24h, 1 TAB PO DAILY, (Reported) Isosorbide Mononitrate (Isosorbide Mononitrate ER) 60 Mg Tab.er.24h, 60 MG PO DAILY, (Reported) Levothyroxine Sodium (Levothyroxine Sodium) 112 Mcg Tablet, 112 MCG PO DAILY, (Reported) Montelukast Sodium (Montelukast Sodium) 10 Mg Tablet, 10 MG PO QHS, (Reported) Multivitamins (Thera M Plus Tablet) 1 Each Tablet, 1 TAB PO QHS, (Reported) Pantoprazole Sodium (Pantoprazole Sodium) 40 Mg Tablet.dr, 40 MG PO DAILY, (Reported) Polyethylene Glycol 3350 (Miralax) 17 Gm Powd.pack, 8.5 GM PO QHS, (Reported) Prednisone (Prednisone) 10 Mg Tablet, 10 MG PO TAPER 6 tabs daily x 1 days then 4 tabs daily x3 days then 3 tabs daily x3 days then 2 tab daily x3 days then 1 tab daily x3 days Ubidecarenone (Co Q-10) 200 Mg Capsule, 200 MG PO QHS, (Reported) [Prevagen] , 1 CHEW PO DAILY, (Reported) Scheduled PRN Morphine Sulfate (Morphine Sulfate) 100 Mg/5 Ml Solution, 0.25 ML PO Q3HP PRN for SOB/COUGH, (Reported) Nitroglycerin (Nitroglycerin) 0.4 Mg Tab.subl, 0.4 MG SL PRN PRN for CHEST PAIN, (Reported) Allergies Coded Allergies: codeine (Verified Allergy, Unknown, 01/28/21) NORM DELGADILLO DO Jan 29, 2021 12:49
--- NOTE | 2021-01-31 13:13 | ECHO ---
ECHOCARDIOGRAM DATE OF PROCEDURE: 01/29/2021 Age: Gender: Height: 173 cm Weight: 59 kg REFERRING PHYSICIAN: Dr. Kvng Perez INDICATION: Cardiac murmur, unspecified. 2D MEASUREMENTS: Aortic root 2.9 cm Left atrium 3.3 cm Left atrial volume index 34 Ventricular septum 1.37 cm Posterior wall 1.42 cm Left ventricle diastole 3.8 cm DOPPLER MEASURES: No aortic regurgitation. No aortic stenosis. Aortic valve velocity 159 cm/s LVOT velocity 62.0 cm/s LVOT VTI 12.8 cm Trace mitral regurgitation. Mitral E velocity 56.1 cm/s Mitral A velocity 60.8 cm/s Mitral deceleration time 153 msec Mild-moderate tricuspid regurgitation. Estimated right ventricle systolic pressure 47-52 mmHg Estimated right atrial pressure of 0-5 mmHg based on near-transient respiratory collapse of the IVC. No pulmonic regurgitation. Pulmonary acceleration time 74 msec MITRAL ANNULAR TISSUE DOPPLER: E prime septal 3.5 cm/s E prime lateral 7.8 cm/s DESCRIPTION: Rhythm was sinus with occasional PVCs. Appearance of LBBB morphology. Imaging quality was good. This was a 2D, M-mode, color flow Doppler, and pulse wave Doppler examination, including mitral annular tissue Doppler. CONCLUSIONS: 1. Severe focal thickening and focal calcific deposits of a 3-cuspid aortic valve. No significant reduction of mobility of the aortic cusps and no fusion of the aortic cusps. No aortic stenosis and no aortic regurgitation. 2. Mild concentric left ventricular hypertrophy with presence of paradoxical septal motion and akinesis of the inferobasal LV segment with normal wall motion and wall thickening elsewhere. Moderate reduction of overall LV systolic function. LVEF 40% by visual estimate. Grade 1 LV diastolic dysfunction (relaxation filling pattern). 3. Mild left atrial dilatation by left atrial volume index. 4. Mild-moderate tricuspid regurgitation, suggestive of moderate elevation of estimated right ventricle systolic pressure (47-52 mmHg), suggestive of moderate elevation of PA systolic pressure. Normal right ventricle size and systolic function. Mild right atrial dilatation by visual assessment. Near-transient collapse of the IVC during respiration, suggestive of low CVP in the range of 0-5 mmHg. 5. Mild mitral annular calcification. Trace mitral regurgitation. 6. Minute amount of pericardial effusion seen over the posterobasal segment of the left ventricle, possibly within a physiologic amount. MTDD
== END 2021-01-29 14:15 | disposition home health service (06) | DRG 197 ==
LOC: M ED 22:26 → M ED INP 01-28 07:45 → ENRESERV 01-28 09:06 → M MS5PR 01-28 10:50
PROVIDERS: ADMIT Family Medicine; ATTEND Family Medicine
DX: J84.10 Pulmonary fibrosis, unspecified (principal); J96.11 Chronic respiratory failure with hypoxia; I20.9 Angina pectoris, unspecified; I10 Essential (primary) hypertension; E78.5 Hyperlipidemia, unspecified; Z79.82 Long term (current) use of aspirin; Z79.899 Other long term (current) drug therapy; Z88.5 Allergy status to narcotic agent; E03.9 Hypothyroidism, unspecified